=== PATIENT | female | born 1995 | race Caucasian/White ===

== ENCOUNTER 2016-06-12 10:07 | Emergency (ER) | payer OTHER ==
[~2016-06-12] VITALS: Ht 177.8 cm; Wt 114.2 kg
[2016-06-12 11:33] LABS: ADD MIUA? YES; BILIRUBIN NEGATIVE; BLOOD NEGATIVE; COLOR YELLOW ((YELLOW)); GLUCOSE (STRIP) NEGATIVE; KETONES NEGATIVE; LEUKOCYTES TRACE; NITRITE NEGATIVE; PROTEIN (STRIP) NEGATIVE; SPECIFIC GRAVITY 1.004 (1.000-1.030)
[2016-06-12 11:41] LABS: HEMATOCRIT 35.2 % (36.0-46.0); MCH 30.1 PG (29.0-34.0); MCHC 33.8 G/DL (30.0-36.0); MCV 88.9 FL (83-99); MEAN PLAT.VOLUME 9.2 uM^3 (9.5-12.4); PLATELET COUNT 285 K/uL (156-360); RBC DIS.WIDTH-CV 12.8 % (11.8-14.6); RBC DIS.WIDTH-SD 40.3 % (39-53); RED BLOOD COUNT 3.96 M/uL (3.80-5.20); WHITE BLOOD COUNT 9.2 K/uL (4.1-10.2)
[2016-06-12 11:42] LABS: BACTERIA RARE /HPF; EPITHELIAL CELLS 3+ /HPF; MUCUS NONE SEEN /LPF; RED BLOOD CELLS 0-5 /HPF (0-5); UCUL ADDED? NO; WHITE BLOOD CELLS NONE SEEN /HPF (0-5)
[2016-06-12 12:10] LABS: INFLUENZA A VIRAL ANTIGEN NEGATIVE; INFLUENZA B VIRAL ANTIGEN NEGATIVE
[2016-06-12 12:26] LABS: ANION GAP 11 MEQ/L (2-14); CHLORIDE 104 MEQ/L (99-109); POTASSIUM 3.4 MEQ/L (3.7-5.4); SAMPLE HEMOLYSIS CHECK 0; SAMPLE ICTERIC CHECK 0; SAMPLE LIPEMIA CHECK 0; SODIUM 137 MEQ/L (136-147); TOTAL BILIRUBIN 0.3 MG/DL (0.0-1.0)
[2016-06-12 12:32] LABS: ALKALINE PHOSPHATASE 82 IU/L (3-129); GFR ESTIMATE (CALCULATED) > 59 mL/min/; GLUCOSE 65 mg/dL (70-99); UREA NITROGEN (BUN) 4 mg/dL (9-23)
[2016-06-12 13:11] LABS: QUANTITATIVE HCG 11022.1 MIU/ML
[2016-06-12 13:19] VITALS: BP 120/55
== END 2016-06-12 13:20 | disposition home or self-care (01) ==
LOC: EME 10:07
PROVIDERS: Nurse Practitioner Family
DX: J06.9 Acute upper respiratory infection, unspecified (principal); R11.2 Nausea with vomiting, unspecified; Z33.1 Pregnant state, incidental; Z3A.25 25 weeks gestation of pregnancy
CPT/HCPCS: 80053; 81003; 84702; 85027; 87502; 99281; 99284

== ENCOUNTER 2016-08-06 13:51 | Outpatient (CLI) | payer OTHER ==
[2016-08-06] VITALS (13 sets, daily range): BP systolic 108–123; BP diastolic 51–63
[~2016-08-06] VITALS: Ht 177.8 cm; Wt 118.3 kg
[2016-08-06 15:36] LABS: BASOPHIL COUNT 0.1 K/uL (0-0.1); EOSINOPHIL (%) 0.8 % (0-5); EOSINOPHIL COUNT 0.1 K/uL (0-0.3); HEMATOCRIT 36.2 % (36.0-46.0); IMMATURE GRANULOCYTE (%) 1.6 % (0.0-0.7); IMMATURE GRANULOCYTE COUNT 0.3 K/uL; INSTRUMENT ABS NEUTROPHIL CT 11.8 K/uL; LYMPHOCYTE COUNT 2.9 K/uL (1.0-2.8); MCH 29.9 PG (29.0-34.0); MCHC 33.1 G/DL (30.0-36.0); MEAN PLAT.VOLUME 9.6 uM^3 (9.5-12.4); MONOCYTE (%) 6.6 % (3-12); MONOCYTE COUNT 1.1 K/uL (0-0.8); NEUTROPHIL (%) 72.7 % (45-76); NEUTROPHIL COUNT 11.8 K/uL (1.8-6.4); PLATELET COUNT 301 K/uL (156-360); RBC DIS.WIDTH-CV 12.4 % (11.8-14.6); RBC DIS.WIDTH-SD 40.7 % (39-53); RED BLOOD COUNT 4.02 M/uL (3.80-5.20); WHITE BLOOD COUNT 16.2 K/uL (4.1-10.2)
[2016-08-06 15:40] LABS: ADD MIUA? YES; BILIRUBIN NEGATIVE; BLOOD NEGATIVE; COLOR YELLOW ((YELLOW)); GLUCOSE (STRIP) NEGATIVE; KETONES 5; LEUKOCYTES TRACE; NITRITE NEGATIVE; PROTEIN (STRIP) NEGATIVE; SPECIFIC GRAVITY 1.009 (1.000-1.030); UROBILINOGEN 0.2 MG/DL (0.2-1.0)
[2016-08-06 15:45] LABS: BACTERIA RARE /HPF; EPITHELIAL CELLS RARE /HPF; MUCUS TRACE /LPF; RED BLOOD CELLS 0-5 /HPF (0-5); UCUL ADDED? NO; WHITE BLOOD CELLS 0-5 /HPF (0-5)
[2016-08-06 15:47] LABS: AMPHETAMINES QUANT VALUE 0 NG/ML; BARBITUATES QUANT VALUE 0 NG/ML; BENZODIAZEPINES QUANT VALUE 0 NG/ML; BENZODIAZEPINES, URINE SCREEN Negative (200 ng/mL); MARIJUANA QUANT VALUE 0 NG/ML; OPIATES QUANTITATIVE VALUE 0 NG/ML; PHENCYCLIDINE QUANT VALUE 0 NG/ML
[2016-08-06 15:58] LABS: ALKALINE PHOSPHATASE 101 IU/L (3-129); ANION GAP 12 MEQ/L (2-14); CHLORIDE 101 MEQ/L (99-109); GFR ESTIMATE (CALCULATED) > 59 mL/min/; GLUCOSE 77 mg/dL (70-99); SAMPLE HEMOLYSIS CHECK 0; SAMPLE ICTERIC CHECK 0; SAMPLE LIPEMIA CHECK 0; SODIUM 137 MEQ/L (136-147); TOTAL BILIRUBIN 0.4 MG/DL (0.0-1.0); UREA NITROGEN (BUN) 4 mg/dL (9-23)
[2016-08-06 17:57] LABS: DRSB INTERNAL CONTROL PASS; PROBE CHECK PASS; SPECIMEN PROCESSING CONTROL PASS
[2016-08-07] VITALS (19 sets, daily range): BP systolic 94–131; BP diastolic 46–62
[2016-08-08 02:59] VITALS: BP 104/49
[2016-08-08 07:30] VITALS: BP 97/46
[2016-08-08] MEDS ORDERED: PROCARDIA20 MG PO (09:47)
== END 2016-08-08 11:26 | disposition home or self-care (01) ==
LOC: LDRP-OP 13:51 → 2WEST 13:52 → LDRP-OP 10-23 20:06
PROVIDERS: Nurse Practitioner
DX: O60.03 Preterm labor without delivery, third trimester (principal); Z3A.33 33 weeks gestation of pregnancy; R35.0 Frequency of micturition
CPT/HCPCS: 59025; 80053; 80306 90; 81003; 82731; 83735; 85025; 87081; 87086; 87491; 87591; 87653; G0378; J0702; J2405; J3475; J7120

== ENCOUNTER 2016-08-13 17:06 | Outpatient (CLI) | payer OTHER ==
[~2016-08-13] VITALS: Ht 177.8 cm; Wt 117.4 kg
[~2016-08-13 17:06] MED LIST: PROCARDIA20 MG PO
[2016-08-13 17:24] VITALS: BP 109/67
[2016-08-13 18:51] VITALS: BP 115/63
[2016-08-13 19:46] VITALS: BP 114/56
== END 2016-08-13 22:50 | disposition home or self-care (01) ==
LOC: LDRP-OP 17:06 → 2WEST 17:07 → LDRP-OP 10-23 11:47
DX: O47.03 False labor before 37 completed weeks of gestation, third trimester (principal); Z3A.34 34 weeks gestation of pregnancy
CPT/HCPCS: 59025; G0378; J7120

== ENCOUNTER 2016-08-28 03:21 | Outpatient (CLI) | payer OTHER ==
[~2016-08-28] VITALS: Ht 177.8 cm; Wt 118.8 kg
[2016-08-28] VITALS (14 sets, daily range): BP systolic 93–141; BP diastolic 49–67
[2016-08-28 04:54] LABS: EOSINOPHIL (%) 0.5 % (0-5); EOSINOPHIL COUNT 0.1 K/uL (0-0.3); HEMATOCRIT 34.3 % (36.0-46.0); IMMATURE GRANULOCYTE (%) 1.5 % (0.0-0.7); IMMATURE GRANULOCYTE COUNT 0.3 K/uL; INSTRUMENT ABS NEUTROPHIL CT 13.1 K/uL; LYMPHOCYTE COUNT 2.9 K/uL (1.0-2.8); MCH 29.4 PG (29.0-34.0); MCHC 33.8 G/DL (30.0-36.0); MCV 86.8 FL (83-99); MEAN PLAT.VOLUME 9.6 uM^3 (9.5-12.4); MONOCYTE (%) 6.3 % (3-12); MONOCYTE COUNT 1.1 K/uL (0-0.8); NEUTROPHIL (%) 75.1 % (45-76); NEUTROPHIL COUNT 13.1 K/uL (1.8-6.4); PLATELET COUNT 291 K/uL (156-360); RBC DIS.WIDTH-CV 12.4 % (11.8-14.6); RBC DIS.WIDTH-SD 39.7 % (39-53); RED BLOOD COUNT 3.95 M/uL (3.80-5.20); WHITE BLOOD COUNT 17.4 K/uL (4.1-10.2)
== END 2016-08-28 18:00 | disposition home or self-care (01) ==
LOC: LDRP-OP 03:21 → 2WEST 03:22 → LDRP-OP 10-23 23:15
PROVIDERS: Obstetrics & Gynecology
DX: O60.03 Preterm labor without delivery, third trimester (principal); Z3A.36 36 weeks gestation of pregnancy
CPT/HCPCS: 59025; 85025; C1755; G0378; J0595; J7120; Q0169

== ENCOUNTER 2016-09-03 04:08 | Inpatient (IN) | payer OTHER ==
[~2016-09-03] VITALS: Ht 177.8 cm; Wt 120.2 kg
[2016-09-03] VITALS (12 sets, daily range): BP systolic 95–132; BP diastolic 50–64
[2016-09-03 04:57] LABS: EOSINOPHIL (%) 1.1 % (0-5); EOSINOPHIL COUNT 0.2 K/uL (0-0.3); HEMATOCRIT 36.3 % (36.0-46.0); IMMATURE GRANULOCYTE (%) 2.1 % (0.0-0.7); IMMATURE GRANULOCYTE COUNT 0.3 K/uL; INSTRUMENT ABS NEUTROPHIL CT 10.2 K/uL; LYMPHOCYTE COUNT 4.2 K/uL (1.0-2.8); MCH 29.5 PG (29.0-34.0); MCHC 34.2 G/DL (30.0-36.0); MCV 86.4 FL (83-99); MEAN PLAT.VOLUME 9.5 uM^3 (9.5-12.4); MONOCYTE (%) 7.4 % (3-12); MONOCYTE COUNT 1.2 K/uL (0-0.8); NEUTROPHIL (%) 63.1 % (45-76); NEUTROPHIL COUNT 10.2 K/uL (1.8-6.4); PLATELET COUNT 365 K/uL (156-360); RBC DIS.WIDTH-CV 12.4 % (11.8-14.6); WHITE BLOOD COUNT 16.1 K/uL (4.1-10.2)
[2016-09-03] MEDS ORDERED: SERTRALINE HCL50 MG PO (08:43)
[2016-09-03] MEDS ORDERED: IBUPROFEN800 MG PO (08:43)
[2016-09-03] MEDS ORDERED: ZOFRAN4 MG PO (09:05)
[2016-09-03] MEDS ORDERED: TUMS500 MG PO (09:05)
[2016-09-04 07:31] VITALS: BP 117/57
[2016-09-04 15:18] VITALS: BP 134/65
[2016-09-04 23:14] VITALS: BP 112/48
[2016-09-05 07:42] VITALS: BP 119/59
== END 2016-09-05 15:29 | disposition home or self-care (01) | DRG 775 ==
LOC: LDRP-OP 04:08 → 2WEST 04:09 → LDRP-OP 10-23 01:26
PROVIDERS: Nurse Practitioner
PROC: 10E0XZZ Delivery of Products of Conception, External Approach (ICD-10-PCS; principal; 2016-09-03)
PROC: 3E0S3BZ Introduction of Anesthetic Agent into Epidural Space, Percutaneous Approach (ICD-10-PCS; 2016-09-03)
DX: O99.214 Obesity complicating childbirth (principal); F33.9 Major depressive disorder, recurrent, unspecified; O99.344 Other mental disorders complicating childbirth; O69.1XX1 Labor and delivery complicated by cord around neck, with compression, fetus 1; E66.9 Obesity, unspecified; Z37.0 Single live birth; Z3A.37 37 weeks gestation of pregnancy; Z68.37 Body mass index [BMI] 37.0-37.9, adult
CPT/HCPCS: 85025; C1755; J3010; J7120

== ENCOUNTER 2016-09-06 11:34 | Emergency (ER) | payer OTHER ==
[~2016-09-06] VITALS: Ht 177.8 cm; Wt 115.1 kg
[~2016-09-06 11:34] MED LIST changes: +IBUPROFEN800 MG PO; +SERTRALINE HCL50 MG PO; +TUMS500 MG PO; +ZOFRAN4 MG PO
[2016-09-06 13:26] LABS: HEMATOCRIT 35.3 % (36.0-46.0); MCH 29.4 PG (29.0-34.0); MCHC 32.9 G/DL (30.0-36.0); MCV 89.6 FL (83-99); MEAN PLAT.VOLUME 9.4 uM^3 (9.5-12.4); PLATELET COUNT 312 K/uL (156-360); RBC DIS.WIDTH-CV 12.6 % (11.8-14.6); RBC DIS.WIDTH-SD 41.1 % (39-53); RED BLOOD COUNT 3.94 M/uL (3.80-5.20); WHITE BLOOD COUNT 13.6 K/uL (4.1-10.2)
[2016-09-06 13:34] LABS: CHLORIDE 111 mEq/L (99-109); POTASSIUM 3.8 mEq/L (3.7-5.4); SODIUM 144 mEq/L (136-147)
[2016-09-06 13:35] LABS: INTER. NORMALIZED RATIO 0.9; PROTHROMBIN TIME 9.6 (9.2-11.2)
[2016-09-06 13:36] LABS: GLUCOSE 80 mg/dL (70-99)
[2016-09-06 13:37] LABS: ANION GAP 13 MEQ/L (2-14)
[2016-09-06 13:40] LABS: GFR ESTIMATE (CALCULATED) > 59 mL/min/
[2016-09-06 13:41] LABS: UREA NITROGEN (BUN) 4 mg/dL (9-23)
[2016-09-06 14:55] VITALS: BP 122/72
== END 2016-09-06 16:15 | disposition home or self-care (01) ==
LOC: EME 11:34
PROVIDERS: Emergency Medicine
DX: O89.4 Spinal and epidural anesthesia-induced headache during the puerperium (principal)
CPT/HCPCS: 80048; 81003; 85027; 85610; 99281; 99285; C1755; J7030

== ENCOUNTER 2016-11-26 08:50 | Emergency (ER) | payer OTHER ==
[~2016-11-26] VITALS: Ht 177.8 cm; Wt 114.2 kg
[2016-11-26 10:15] LABS: HEMATOCRIT 38.3 % (36.0-46.0); MCH 28.2 PG (29.0-34.0); MCHC 32.9 G/DL (30.0-36.0); MCV 85.7 FL (83-99); MEAN PLAT.VOLUME 9.4 uM^3 (9.5-12.4); PLATELET COUNT 325 K/uL (156-360); RBC DIS.WIDTH-CV 12.4 % (11.8-14.6); RBC DIS.WIDTH-SD 38.9 % (39-53); RED BLOOD COUNT 4.47 M/uL (3.80-5.20); WHITE BLOOD COUNT 10.3 K/uL (4.1-10.2)
[2016-11-26 10:26] LABS: CHLORIDE 107 mEq/L (99-109); POTASSIUM 3.7 mEq/L (3.7-5.4); SODIUM 141 mEq/L (136-147)
[2016-11-26 10:29] LABS: GLUCOSE 101 mg/dL (70-99)
[2016-11-26 10:30] LABS: ANION GAP 12 MEQ/L (2-14)
[2016-11-26 10:31] LABS: TOTAL BILIRUBIN 0.5 mg/dL (0.0-1.0)
[2016-11-26 10:32] LABS: ALKALINE PHOSPHATASE 104 IU/L (3-129); GFR ESTIMATE (CALCULATED) > 59 mL/min/
[2016-11-26 10:33] LABS: UREA NITROGEN (BUN) 7 mg/dL (9-23)
[2016-11-26 10:37] LABS: ADD MIUA? YES; BILIRUBIN NEGATIVE; BLOOD MODERATE; GLUCOSE (STRIP) NEGATIVE; KETONES NEGATIVE; LEUKOCYTES NEGATIVE; NITRITE NEGATIVE; PROTEIN (STRIP) NEGATIVE; UROBILINOGEN 0.2 MG/DL (0.2-1.0)
[2016-11-26 10:39] LABS: COLOR LT YELLOW ((YELLOW))
[2016-11-26 10:41] LABS: QUANTITATIVE HCG < 4.0 MIU/ML
[2016-11-26 10:56] LABS: BACTERIA NONE SEEN /HPF; EPITHELIAL CELLS RARE /HPF; MUCUS TRACE /LPF; RED BLOOD CELLS 30-40 /HPF (0-5); UCUL ADDED? NO; WHITE BLOOD CELLS 0-5 /HPF (0-5)
[2016-11-26 11:39] VITALS: BP 121/66
== END 2016-11-26 11:40 | disposition home or self-care (01) ==
LOC: EME 08:50
PROVIDERS: Emergency Medicine
DX: R19.7 Diarrhea, unspecified (principal); R10.84 Generalized abdominal pain; F32.9 Major depressive disorder, single episode, unspecified; F41.9 Anxiety disorder, unspecified
CPT/HCPCS: 80053; 81003; 84702; 85027; 99281; 99284; J7030

== ENCOUNTER 2017-05-08 14:37 | Emergency (ER) | payer OTHER ==
[~2017-05-08] VITALS: Ht 177.8 cm; Wt 117.5 kg
[2017-05-08 15:40] LABS: APPEARANCE SL.HAZY ((CLEAR)); BILIRUBIN NEGATIVE; BLOOD NEGATIVE; COLOR YELLOW ((YELLOW)); GLUCOSE (STRIP) NEGATIVE; KETONES NEGATIVE; LEUKOCYTES TRACE; NITRITE NEGATIVE; PROTEIN (STRIP) NEGATIVE; SPECIFIC GRAVITY 1.019 (1.000-1.030)
[2017-05-08 15:44] LABS: BACTERIA RARE /HPF; EPITHELIAL CELLS 1+ /HPF; MUCUS 3+ /LPF; RED BLOOD CELLS 0-5 /HPF (0-5); UCUL ADDED? NO; WHITE BLOOD CELLS 0-5 /HPF (0-5)
[2017-05-08 17:14] LABS: ALBUMIN 5.2 g/dL (3.2-4.8); CHLORIDE 103 mEq/L (99-109); POTASSIUM 4.1 mEq/L (3.7-5.4); SODIUM 138 mEq/L (136-147)
[2017-05-08 17:16] LABS: GLUCOSE 68 mg/dL (70-99)
[2017-05-08 17:17] LABS: TOTAL PROTEIN 9.8 g/dL (6.4-8.3)
[2017-05-08 17:18] LABS: TOTAL BILIRUBIN 0.5 mg/dL (0.0-1.0)
[2017-05-08 17:20] LABS: ALKALINE PHOSPHATASE 122 IU/L (3-129); CREATININE 0.6 mg/dL (0.6-1.3); GFR ESTIMATE (CALCULATED) > 59 mL/min/
[2017-05-08 17:21] LABS: UREA NITROGEN (BUN) 4 mg/dL (9-23)
[2017-05-08 17:22] LABS: AST (GOT) 31 IU/L (2-34)
[2017-05-08 17:23] LABS: ALT (GPT) 42 IU/L (3-49)
[2017-05-08 17:50] LABS: QUANTITATIVE HCG 115722.4 MIU/ML
[2017-05-08] MEDS ORDERED: REGLAN10 MG PO (18:06)
[2017-05-08 18:25] VITALS: BP 112/67
== END 2017-05-08 18:28 | disposition home or self-care (01) ==
LOC: EME 14:37
PROVIDERS: Emergency Medicine
DX: O99.89 Other specified diseases and conditions complicating pregnancy, childbirth and the puerperium (principal); R51 Headache; O99.341 Other mental disorders complicating pregnancy, first trimester; F32.9 Major depressive disorder, single episode, unspecified; F41.9 Anxiety disorder, unspecified; Z3A.10 10 weeks gestation of pregnancy
CPT/HCPCS: 80053; 81003; 84702; 85027; 87502; 99281; 99285; J2765; J7030

== ENCOUNTER 2017-09-07 16:37 | Outpatient (CLI) | payer OTHER ==
[~2017-09-07] VITALS: Ht 177.8 cm; Wt 117.0 kg
[~2017-09-07 16:37] MED LIST changes: +REGLAN10 MG PO
[2017-09-07 17:03] VITALS: BP 124/63
[2017-09-07 17:40] LABS: BASOPHIL (%) 0.3 % (0-1); EOSINOPHIL (%) 0.5 % (0-5); EOSINOPHIL COUNT 0.1 K/uL (0-0.3); HEMATOCRIT 35.1 % (36.0-46.0); HEMOGLOBIN 11.6 G/DL (11.9-15.5); IMMATURE GRANULOCYTE (%) 1.2 % (0.0-0.7); LYMPHOCYTE COUNT 2.4 K/uL (1.0-2.8); MCH 29.1 PG (29.0-34.0); MCV 88.2 FL (83-99); MONOCYTE (%) 5.1 % (3-12); MONOCYTE COUNT 0.7 K/uL (0-0.8); NEUTROPHIL (%) 75.9 % (45-76); NEUTROPHIL COUNT 10.5 K/uL (1.8-6.4); PLATELET COUNT 293 K/uL (156-360); RBC DIS.WIDTH-CV 13.1 % (11.8-14.6); RBC DIS.WIDTH-SD 42.3 % (39-53); RED BLOOD COUNT 3.98 M/uL (3.80-5.20); WHITE BLOOD COUNT 13.9 K/uL (4.1-10.2)
[2017-09-07 18:28] LABS: THYROTROPIN (TSH) 0.67 MIU/L (0.4-5.5)
[2017-09-07 18:42] LABS: ALBUMIN 3.6 G/DL (3.2-4.8); CHLORIDE 103 MEQ/L (99-109); POTASSIUM 4.1 MEQ/L (3.7-5.4); SODIUM 135 MEQ/L (136-147); TOTAL BILIRUBIN 0.4 MG/DL (0.0-1.0)
[2017-09-07 18:48] LABS: ALKALINE PHOSPHATASE 83 IU/L (3-129); ALT (GPT) 10 IU/L (3-49); AST (GOT) 15 IU/L (2-34); CREATININE 0.4 MG/DL (0.6-1.3); GFR ESTIMATE (CALCULATED) > 59 mL/min/; GLUCOSE 83 mg/dL (70-99); UREA NITROGEN (BUN) 4 mg/dL (9-23)
== END 2017-09-07 19:28 | disposition home or self-care (01) ==
LOC: LDRP-OP 16:37 → 2WEST 16:39 → LDRP-OP 01-04 11:48
PROVIDERS: Obstetrics & Gynecology
DX: O26.892 Other specified pregnancy related conditions, second trimester (principal); R10.2 Pelvic and perineal pain; O99.342 Other mental disorders complicating pregnancy, second trimester; F41.9 Anxiety disorder, unspecified; F32.9 Major depressive disorder, single episode, unspecified; O99.612 Diseases of the digestive system complicating pregnancy, second trimester; K58.9 Irritable bowel syndrome, unspecified; Z3A.27 27 weeks gestation of pregnancy
CPT/HCPCS: 59025; 80053; 82731; 84443; 85025; G0378

== ENCOUNTER 2017-10-02 14:38 | Emergency (ER) | payer OTHER ==
[~2017-10-02] VITALS: Ht 177.8 cm; Wt 119.7 kg
[2017-10-02 15:48] LABS: HEMATOCRIT 33.1 % (36.0-46.0); HEMOGLOBIN 11.4 G/DL (11.9-15.5); MCH 30.2 PG (29.0-34.0); MCHC 34.4 G/DL (30.0-36.0); MCV 87.8 FL (83-99); PLATELET COUNT 298 K/uL (156-360); RBC DIS.WIDTH-CV 12.9 % (11.8-14.6); RBC DIS.WIDTH-SD 41.3 % (39-53); RED BLOOD COUNT 3.77 M/uL (3.80-5.20); WHITE BLOOD COUNT 12.5 K/uL (4.1-10.2)
[2017-10-02 15:57] LABS: ALBUMIN 3.4 g/dL (3.2-4.8); CHLORIDE 105 mEq/L (99-109); SODIUM 138 mEq/L (136-147)
[2017-10-02 15:59] LABS: GLUCOSE 75 mg/dL (70-99)
[2017-10-02 15:59] LABS: APPEARANCE SL.HAZY ((CLEAR)); BILIRUBIN NEGATIVE; BLOOD NEGATIVE; COLOR YELLOW ((YELLOW)); GLUCOSE (STRIP) NEGATIVE; KETONES NEGATIVE; LEUKOCYTES TRACE; NITRITE NEGATIVE; PROTEIN (STRIP) NEGATIVE; SPECIFIC GRAVITY 1.023 (1.000-1.030)
[2017-10-02 16:01] LABS: TOTAL BILIRUBIN 0.3 mg/dL (0.0-1.0)
[2017-10-02 16:03] LABS: ALKALINE PHOSPHATASE 114 IU/L (3-129); CREATININE 0.5 mg/dL (0.6-1.3); GFR ESTIMATE (CALCULATED) > 59 mL/min/
[2017-10-02 16:04] LABS: UREA NITROGEN (BUN) 6 mg/dL (9-23)
[2017-10-02 16:05] LABS: AST (GOT) 9 IU/L (2-34)
[2017-10-02 16:05] LABS: BACTERIA RARE /HPF; EPITHELIAL CELLS 1+ /HPF; MUCUS 2+ /LPF; RED BLOOD CELLS NONE SEEN /HPF (0-5); WHITE BLOOD CELLS 0-5 /HPF (0-5)
[2017-10-02 16:06] LABS: ALT (GPT) 10 IU/L (3-49)
[2017-10-02] MEDS ORDERED: DICLEGIS DR 101 EACH PO (17:31)
[2017-10-02 17:44] VITALS: BP 112/70
== END 2017-10-02 17:45 | disposition home or self-care (01) ==
LOC: EME 14:38
PROVIDERS: Physician Assistant
DX: O26.893 Other specified pregnancy related conditions, third trimester (principal); R51 Headache; Z3A.31 31 weeks gestation of pregnancy; Z88.8 Allergy status to other drugs, medicaments and biological substances
CPT/HCPCS: 80053; 81003; 85027; 99281; 99284; J1100; J7030

== ENCOUNTER 2017-10-08 16:48 | Outpatient (CLI) | payer OTHER ==
[~2017-10-08 16:48] MED LIST changes: +DICLEGIS DR 101 EACH PO
[2017-10-08 17:08] VITALS: BP 122/65
== END 2017-10-08 19:26 | disposition home or self-care (01) ==
LOC: LDRP-OP → 2WEST 16:50 → LDRP-OP 01-04 19:47
DX: O60.03 Preterm labor without delivery, third trimester (principal); Z3A.32 32 weeks gestation of pregnancy
CPT/HCPCS: 59025; 82731; G0378

== ENCOUNTER 2017-10-22 06:51 | Inpatient (IN) | payer OTHER ==
[2017-10-22] VITALS (11 sets, daily range): BP systolic 101–137; BP diastolic 50–76
[~2017-10-22] VITALS: Ht 177.8 cm; Wt 120.4 kg
[2017-10-22] MEDS ORDERED: ZOLOFT25 MG PO (07:10)
[2017-10-22 09:30] LABS: APPEARANCE CLOUDY ((CLEAR)); BILIRUBIN NEGATIVE; BLOOD NEGATIVE; COLOR YELLOW ((YELLOW)); GLUCOSE (STRIP) NEGATIVE; KETONES NEGATIVE; LEUKOCYTES LARGE; NITRITE NEGATIVE; PROTEIN (STRIP) NEGATIVE; SPECIFIC GRAVITY 1.027 (1.000-1.030); UROBILINOGEN 0.2 MG/DL (0.2-1.0)
[2017-10-22 10:19] LABS: RED BLOOD CELLS 0-5 /HPF (0-5)
[2017-10-22 10:20] LABS: BACTERIA 1+ /HPF; EPITHELIAL CELLS 1+ /HPF; MUCUS NONE SEEN /LPF; UCUL ADDED? YES; URIC ACID CRYSTALS 2+ /HPF
[2017-10-22 11:44] LABS: BASOPHIL (%) 0.2 % (0-1); EOSINOPHIL (%) 0.2 % (0-5); HEMOGLOBIN 11.1 G/DL (11.9-15.5); IMMATURE GRANULOCYTE (%) 1.1 % (0.0-0.7); LYMPHOCYTE (%) 15.4 % (15-42); LYMPHOCYTE COUNT 2.1 K/uL (1.0-2.8); MCH 28.8 PG (29.0-34.0); MCHC 32.6 G/DL (30.0-36.0); MCV 88.3 FL (83-99); MONOCYTE (%) 5.6 % (3-12); MONOCYTE COUNT 0.8 K/uL (0-0.8); NEUTROPHIL (%) 77.5 % (45-76); NEUTROPHIL COUNT 10.4 K/uL (1.8-6.4); PLATELET COUNT 269 K/uL (156-360); RBC DIS.WIDTH-SD 41.1 % (39-53); RED BLOOD COUNT 3.85 M/uL (3.80-5.20); WHITE BLOOD COUNT 13.5 K/uL (4.1-10.2)
[2017-10-22 12:37] LABS: AMPHETAMINE NEGATIVE (500 ng/mL); BARBITURATES NEGATIVE (200 ng/mL); BENZODIAZEPINES NEGATIVE (150 ng/mL); BUPRENORPHINE NEGATIVE (10 ng/mL); COCAINE NEGATIVE (150 ng/mL); METHADONE NEGATIVE (200 ng/mL); METHAMPHETAMINE NEGATIVE (500 ng/mL); OPIATES (MORPHINE) NEGATIVE (100 ng/mL); OXYCODONE NEGATIVE (100 ng/mL); PHENCYCLIDINE NEGATIVE (25 ng/mL); PROPOXYPHENE NEGATIVE (300 ng/mL); THC CANNABINOIDS NEGATIVE (50 ng/mL); TRICYCLIC ANTIDEPRESSANTS NEGATIVE (300 ng/mL)
[2017-10-23 03:04] VITALS: BP 109/54
[2017-10-23 06:58] VITALS: BP 117/62
[2017-10-23] MEDS ORDERED: PRENATAL VITAM1 EA11 PO (09:45)
== END 2017-10-23 12:23 | disposition left against medical advice (07) | DRG 778 ==
LOC: LDRP-OP 06:51 → 2WEST 06:52 → LDRP-OP 01-04 21:06
PROVIDERS: Nurse Practitioner; Obstetrics & Gynecology Gynecology
DX: O60.03 Preterm labor without delivery, third trimester (principal); Z3A.34 34 weeks gestation of pregnancy; O99.343 Other mental disorders complicating pregnancy, third trimester; F41.9 Anxiety disorder, unspecified; F32.9 Major depressive disorder, single episode, unspecified; G43.909 Migraine, unspecified, not intractable, without status migrainosus; O99.613 Diseases of the digestive system complicating pregnancy, third trimester; O99.89 Other specified diseases and conditions complicating pregnancy, childbirth and the puerperium; K58.0 Irritable bowel syndrome with diarrhea
CPT/HCPCS: 81003; 82731; 85025; 87081; 87086; 87480; 87510; 87660; J0702; J2405; J2540; J7120

== ENCOUNTER 2017-10-24 11:34 | Outpatient (CLI) | payer OTHER ==
[~2017-10-24] VITALS: Ht 177.8 cm; Wt 122.3 kg
[~2017-10-24 11:34] MED LIST changes: +PRENATAL VITAM1 EA11 PO; +ZOLOFT25 MG PO
[2017-10-24 11:45] VITALS: BP 116/59
[2017-10-24 13:36] VITALS: BP 109/54
== END 2017-10-24 14:50 | disposition home or self-care (01) ==
LOC: LDRP-OP 11:34 → 2WEST 11:36 → LDRP-OP 01-04 11:18
DX: O99.613 Diseases of the digestive system complicating pregnancy, third trimester (principal); K58.0 Irritable bowel syndrome with diarrhea; O26.873 Cervical shortening, third trimester; O99.343 Other mental disorders complicating pregnancy, third trimester; F32.9 Major depressive disorder, single episode, unspecified; F41.9 Anxiety disorder, unspecified; Z3A.34 34 weeks gestation of pregnancy
CPT/HCPCS: 59025; G0378

== ENCOUNTER 2017-11-26 07:15 | Inpatient (IN) | payer OTHER ==
[2017-11-26] VITALS (13 sets, daily range): BP systolic 98–141; BP diastolic 48–68
[~2017-11-26] VITALS: Ht 177.8 cm; Wt 269.0 kg
[2017-11-26 09:23] LABS: BASOPHIL (%) 0.3 % (0-1); EOSINOPHIL (%) 0.8 % (0-5); EOSINOPHIL COUNT 0.1 K/uL (0-0.3); HEMATOCRIT 32.9 % (36.0-46.0); HEMOGLOBIN 11.3 G/DL (11.9-15.5); IMMATURE GRANULOCYTE (%) 1.6 % (0.0-0.7); LYMPHOCYTE (%) 23.2 % (15-42); LYMPHOCYTE COUNT 3.4 K/uL (1.0-2.8); MCH 29.5 PG (29.0-34.0); MCHC 34.3 G/DL (30.0-36.0); MCV 85.9 FL (83-99); MONOCYTE (%) 6.9 % (3-12); NEUTROPHIL (%) 67.2 % (45-76); NEUTROPHIL COUNT 9.8 K/uL (1.8-6.4); PLATELET COUNT 275 K/uL (156-360); RBC DIS.WIDTH-CV 13.8 % (11.8-14.6); RBC DIS.WIDTH-SD 42.5 % (39-53); RED BLOOD COUNT 3.83 M/uL (3.80-5.20); WHITE BLOOD COUNT 14.6 K/uL (4.1-10.2)
[2017-11-26 09:30] LABS: AMPHETAMINE NEGATIVE (500 ng/mL); BARBITURATES NEGATIVE (200 ng/mL); BENZODIAZEPINES NEGATIVE (150 ng/mL); BUPRENORPHINE NEGATIVE (10 ng/mL); COCAINE NEGATIVE (150 ng/mL); METHADONE NEGATIVE (200 ng/mL); METHAMPHETAMINE NEGATIVE (500 ng/mL); OPIATES (MORPHINE) NEGATIVE (100 ng/mL); OXYCODONE NEGATIVE (100 ng/mL); PHENCYCLIDINE NEGATIVE (25 ng/mL); PROPOXYPHENE NEGATIVE (300 ng/mL); THC CANNABINOIDS NEGATIVE (50 ng/mL); TRICYCLIC ANTIDEPRESSANTS NEGATIVE (300 ng/mL)
[2017-11-26] MEDS ORDERED: IBUPROFEN800 MG PO (10:12)
[2017-11-27 23:00] VITALS: BP 126/63
[2017-11-28 07:14] VITALS: BP 121/70
[2017-11-28] MEDS ORDERED: ZOLOFT25 MG PO (10:36)
== END 2017-11-28 14:16 | disposition home or self-care (01) | DRG 775 ==
LOC: LDRP-OP 07:15 → 2WEST 07:16 → LDRP-OP 16:26 → 2WEST 11-28 14:16 → LDRP-OP 01-04 00:20
PROVIDERS: Advanced Practice Midwife
DX: O99.340 Other mental disorders complicating pregnancy, unspecified trimester (principal); F32.9 Major depressive disorder, single episode, unspecified; F41.9 Anxiety disorder, unspecified; O99.210 Obesity complicating pregnancy, unspecified trimester; E66.9 Obesity, unspecified; O34.83 Maternal care for other abnormalities of pelvic organs, third trimester; N83.299 Other ovarian cyst, unspecified side; Z68.36 Body mass index [BMI] 36.0-36.9, adult; O62.3 Precipitate labor; Z3A.39 39 weeks gestation of pregnancy; Z37.0 Single live birth
CPT/HCPCS: 85025; C1755; J7120